=== PATIENT | male | born 1945 | race Caucasian/White ===

== ENCOUNTER 2022-03-10 10:18 | Outpatient (CLI) | payer MEDICARE, OTHER, SELFPAY ==
--- NOTE | 2022-03-10 08:30 | DI.RAD_ITS ---
Exam(s) XR KNEE LT 3V AP,LAT,SHIVAM EXAM: XR KNEE LT 3V AP,LAT,SHIVAM CLINICAL HISTORY: pain in knee. TECHNIQUE: 2D digital imaging was performed of the left knee. Three images were obtained. AP, late ral and PA tunnel views were obtained. COMPARISON: CR LEFT KNEE 3 VIEW COMPLETE from 07/16/2010 CR XR KNEE RT 3V AP,LAT,SHIVAM from 03/10/2022 FINDINGS: BONES: No acute fracture is present. No bony destructive lesion is seen. Dystrophic calcification is seen superior to the patella. JOINTS: The knee is normally aligned. No joint effusion is seen. Moderately severe degenerative barney es are seen in the knee with joint space narrowing and periarticular spurring. The findings are most marked in the medial femoral tibial joint. SOFT TISSUE: Atherosclerosis is present. IMPRESSION: Moderately severe degenerative changes of the knee. DATA REPOSITORY: RADIATION DOSE DELIVERED:
--- NOTE | 2022-03-10 08:30 | DI.RAD_ITS ---
Exam(s) XR KNEE RT 3V AP,LAT,SHIVAM EXAM: XR KNEE RT 3V AP,LAT,SHIVAM CLINICAL HISTORY: pain in knee. TECHNIQUE: 2D digital imaging was performed of the right knee. Three views obtained. AP, lateral an d PA tunnel views were obtained. COMPARISON: CR RIGHT KNEE 3 VIEWS from 07/16/2010 FINDINGS: BONES: No acute fracture is present. No bony destructive lesion is seen. Dystrophic calcifications ar e seen superior to the patella. JOINTS: The knee is normally aligned. There does appear to be a small joint effusion. Moderately sev ere tricompartment degenerative changes are present with joint space narrowing and periarticular spur ring. The findings are most marked in the patellofemoral joint. SOFT TISSUE: Atherosclerosis is present. IMPRESSION: Moderately severe degenerative changes of the knee. DATA REPOSITORY: RADIATION DOSE DELIVERED:
== END 2022-03-10 10:19 | disposition home or self-care (01) ==
LOC: DIORS 10:19
PROVIDERS: PCP Nurse Practitioner Family; Referring Provider Nurse Practitioner Family; Visit Provider Physician Assistant Surgical
DX: M17.11 Unilateral primary osteoarthritis, right knee (principal); M17.12 Unilateral primary osteoarthritis, left knee
CPT/HCPCS: 20610; 73562; 99203; J1040

== ENCOUNTER 2022-04-26 11:05 | Outpatient (CLI) | payer MEDICARE, OTHER, SELFPAY ==
--- NOTE | 2022-04-26 10:55 | DI.RAD_ITS ---
Exam(s) XR LUMBAR SPINE COMPLETE EXAM: XR LUMBAR SPINE COMPLETE CLINICAL HISTORY: drop foot. TECHNIQUE: 2D digital imaging was performed. COMPARISON: No exams were available for comparison FINDINGS: Six views No evidence of acute fracture nor listhesis. There is fusion across all of the disc spaces in the marilyn mbar spine with the exception of L1-2 and T12-L1. At L1-2 level there are bridging osteophytes. Sac roiliac joints appear unremarkable. IMPRESSION: Multilevel vertebral body fusion at and below L2-3 level. No listhesis. DATA REPOSITORY: RADIATION DOSE DELIVERED:
== END 2022-04-26 11:06 | disposition home or self-care (01) ==
LOC: DIORS 11:06
PROVIDERS: PCP Nurse Practitioner Family; Referring Provider Nurse Practitioner Family; Visit Provider Physician Assistant
DX: M21.371 Foot drop, right foot (principal); M48.061 Spinal stenosis, lumbar region without neurogenic claudication; M54.50 Low back pain, unspecified
CPT/HCPCS: 99215; 72110

== ENCOUNTER → 2022-05-17 02:46 | Outpatient (CLI) | payer MEDICARE, OTHER, SELFPAY ==
--- NOTE | 2022-05-17 07:30 | DI.MRI_ITS ---
Exam(s) MR LUMBAR SPINE WO EXAM: MR LUMBAR SPINE WO CLINICAL HISTORY: LBP, NEW DROP FOOT, S/P MULTIPLE SURGERIES, M54.50, M21.371. TECHNIQUE: Multiplanar multisequence MRI of the Lumbar spine was performed. COMPARISON: CR XR LUMBAR SPINE COMPLETE from 04/26/2022 FINDINGS: Bones: The last intervertebral disc space is designated the L5/S1 level for the numbering purpose of this examination. Partial fusion of L3-L4. Alignment is satisfactory. The signal characteristics ar e unremarkable. There are bridging osteophytes from L2 through S1. There is partial lumbarization of the S1 segment of the sacrum. There is an L2 laminectomy. There is a mild left convex curvature of the lumbar and thoracic spine. Cord: The conus tip ends at the L1 level. It is of normal size and signal intensity. T12-L1: No disc herniations or bulges are present. No central spinal canal or neural foraminal stenos is. L1-2: No disc herniations or bulges are present. No central spinal canal or neural foraminal stenosis . L2-3: No disc herniations or bulges are present. No significant central spinal canal stenosis. Mild bilateral neural foraminal stenosis. L3-4: Mildly prominent osteophyte seen. No significant central spinal canal stenosis. No right neur al foraminal stenosis. Mild left neural foraminal stenosis. L4-5: There is a prominent osteophyte posteriorly. There are hypertrophic changes of the facets and ligamentum flavum. These all contribute to cause mild narrowing of the central spinal canal. There is mild bilateral neural foraminal stenosis. L5-S1: No disc herniations or bulges are present. No significant central spinal canal or right neural foraminal stenosis. Mild left neural foraminal stenosis.Degenerative changes of the facets. Soft tissues: The visualized SI joints and sacrum are well maintained. Mild atrophy of paraspinal mus cles. Visualized abdominal organs: Unremarkable. IMPRESSION: Multilevel degenerative changes of the lumbar spine resulting in central spinal canal or neural jinny inal stenosis as described above. DATA REPOSITORY:
== END ==
PROVIDERS: PCP Nurse Practitioner Family; Visit Provider Student in an Organized Health Care Education/Training Program
DX: M21.371 Foot drop, right foot (principal); M47.816 Spondylosis without myelopathy or radiculopathy, lumbar region; M48.061 Spinal stenosis, lumbar region without neurogenic claudication
CPT/HCPCS: 72148

== ENCOUNTER → 2024-07-01 14:22 | Outpatient (BNVA) | payer MEDICARE, SELFPAY | PROVIDERS: PCP Specialist/Technologist Athletic Trainer; Referring Provider Specialist/Technologist Athletic Trainer; Visit Provider Urology | DX: R33.8 Other retention of urine (principal) | CPT/HCPCS: 99215 ==

== ENCOUNTER → 2024-07-25 09:48 | Outpatient (BNVA) | payer MEDICARE, SELFPAY | PROVIDERS: PCP Specialist/Technologist Athletic Trainer; Referring Provider Specialist/Technologist Athletic Trainer; Visit Provider Nurse Practitioner Gerontology | DX: R33.8 Other retention of urine (principal) | CPT/HCPCS: 99213 ==

== ENCOUNTER → 2024-07-29 12:21 | Outpatient (BNVA) | payer MEDICARE, SELFPAY | PROVIDERS: PCP Specialist/Technologist Athletic Trainer; Visit Provider Urology | DX: Z46.6 Encounter for fitting and adjustment of urinary device (principal); R33.8 Other retention of urine | CPT/HCPCS: 51702; 99214 ==

== ENCOUNTER → 2024-08-29 10:36 | Outpatient (BNVA) | payer MEDICARE, SELFPAY | PROVIDERS: PCP Specialist/Technologist Athletic Trainer; Referring Provider Specialist/Technologist Athletic Trainer; Visit Provider Urology | DX: R33.8 Other retention of urine (principal) | CPT/HCPCS: 51728; 51784; 51797 ==

== ENCOUNTER → 2024-09-02 12:36 | Outpatient (BNVA) | payer MEDICARE, SELFPAY | PROVIDERS: PCP Specialist/Technologist Athletic Trainer; Referring Provider Specialist/Technologist Athletic Trainer; Visit Provider Urology | DX: R33.8 Other retention of urine (principal) | CPT/HCPCS: 99213 ==

== ENCOUNTER → 2024-10-03 10:41 | Outpatient (BNVA) | payer MEDICARE, SELFPAY | PROVIDERS: PCP Specialist/Technologist Athletic Trainer; Referring Provider Specialist/Technologist Athletic Trainer; Visit Provider Urology | DX: Z46.6 Encounter for fitting and adjustment of urinary device (principal); R33.8 Other retention of urine | CPT/HCPCS: 51702 ==

== ENCOUNTER 2024-11-04 08:56 | Observation (INO) | payer MEDICARE, SELFPAY ==
[2024-11-04] VITALS (28 sets, daily range): BP systolic 100–142; BP diastolic 28–69; PULSE 64–83; RESP 13–21; TEMP 36.2–37.2; O2SAT 85–98; BMI 34.7
[2024-11-04] MEDS: Lactated Ringers 1,000 ML 80 ML IV (06:50)
--- NOTE | 2024-11-04 06:56 | W.PM.HP.N ---
Date of service: 11/04/24 Time of Service: 06:57 Assessment and Plan Assessment and plan (1) Urinary retention: Assessment and plan: We will proceed with cystoscopy and TURP using bipolar cautery. We will use broad spectrum antibiotics preoperatively. We discussed possible complications including bleeding, infection and scar tissue/bladder neck contractures History of Present Illness History of Present Illness Chief Complaint: Urinary retention Narrative: This is an 79-year-old gentleman who has a history of progressive lower urinary tract symptoms. He ultimately developed urinary retention and failed maximal medical therapy. He has had an indwelling catheter that is being changed monthly. We were concerned because he had no real sensation of needing to void during his voiding trials. We did a urodynamic study in the office. He was able to sense bladder filling at approximately 500 cc of fluid infused and he was able to generate a bladder pressure of up to 50 cm of water. It was felt that he had a good chance of being able to void if we relieved any bladder outlet obstruction. He presents now for transurethral resection of the prostate. Review of Systems Narrative: No fevers or chills No vision change or dysphasia No diabetes or thyroid dysfunction Short of breath with exertion. No hemoptysis No chest pain or palpitations GERD. No hepatitis, ulcers, jaundice OCD. No seizures, strokes or peripheral neuropathy No bleeding disorders or anemia Spinal stenosis. Bilateral knee pain. Foot drop. No gout PFSH All Active Problems Right foot drop (Acute 04/24/22) Spinal stenosis, lumbar (Acute) Osteoarthritis of right knee (Acute) depo injection 03/10/22 Osteoarthritis of left knee (Acute) depo injection 03/10/22 Varicose veins of lower extremity (Acute) Medical History UTI (urinary tract infection) Hematuria BPH loc w urin obs/LUTS Urinary retention Hyperplasia of prostate Cervical radiculopathy GERD (gastroesophageal reflux disease) Benign essential hypertension Depressive disorder Psychophysiologic insomnia OCD (obsessive compulsive disorder) Hyperlipidemia Polyp of colon Social History Smoking/Tobacco Use Status: Never Smoking risk assessment performed?: Yes Alcohol Intake: current Alcohol Intake frequency: holidays/special occasions only Alcohol type: hard liquor Drug use: Never Substance use type: does not use Housing: house Current gender identity: male Do you feel safe at home: Yes Do you feel safe in your relationship?: Yes Meds Allergies and Home Medications Allergies Allergy/AdvReac Type Severity Reaction Status Date / Time Penicillins Allergy Hives Verified 11/04/24 06:41 Home Medications ?Medication ?Instructions ?Recorded ?Confirmed ?Type acetaminophen 325 mg tablet 1 - 2 tab PO Q6H PRN PRN 04/09/15 10/30/24 History (Tylenol) lamotrigine 100 mg tablet 100 mg PO DAILY 04/09/15 10/30/24 History (Lamictal) lorazepam 0.5 mg tablet 0.5 tab PO PRN PRN 04/09/15 10/30/24 History lorazepam 2 mg tablet 2 tab PO HS 04/13/15 11/04/24 History trazodone 150 mg tablet 150 mg PO HS 04/13/15 11/04/24 History cholecalciferol (vitamin D3) 25 1,000 units PO DAILY 04/15/15 11/04/24 History mcg (1,000 unit) tablet multivitamin 1 cap PO DAILY 04/15/15 11/04/24 History albuterol sulfate 90 mcg/actuation 2 puff inhalation QID 03/09/22 11/04/24 History aerosol inhaler bupropion HCl 150 mg tablet,12 hr 150 mg PO BID 03/09/22 11/04/24 History sustained-release metoprolol succinate 25 mg 25 mg PO DAILY 03/09/22 11/04/24 History tablet,extended release 24 hr izycnkgub-ios-arhvkf complex 1 tab PO DAILY 03/09/22 10/30/24 History #575-vlao-ebbpgvqapg 100 mg tablet (Urinozinc Prostate Formula Plus) tamsulosin 0.4 mg capsule 0.4 mg PO HS 03/09/22 11/04/24 History fluticasone propionate 50 2 spray intranasal BID 06/19/24 10/30/24 History mcg/actuation nasal spray,suspension (Allergy Relief (fluticasone)) nystatin 100,000 unit/gram topical 1 applic topical TID #15 grams 07/02/24 11/04/24 Rx cream mirabegron 50 mg tablet,extended 50 mg PO DAILY #30 tabs 10/03/24 11/04/24 Rx release 24 hr (Myrbetriq) mqnivfcc-qzabhstiv-gfwggrymw 3.5 4 drp otic (ear) TID 10/30/24 11/04/24 History mg/mL-10,000 unit/mL-1 % ear solution Exam Resp Effort & Inspection: normal respiratory effort Auscultation: clear to auscultation bilaterally Cardio Rate: regular rate Rhythm: regular rhythm GI Palpation: soft and no masses Other: sherwood in place Neuro General: patient alert, patient awake and patient oriented x3 Results Last Vital Signs Temp 36.7 C 11/04/24 06:27 Pulse 76 11/04/24 06:27 Resp 17 11/04/24 06:27 BP 118/60 11/04/24 06:27 Pulse Ox 94 11/04/24 06:27 Time Spent Time spent with Patient: <40 minutes Time was spent: other
--- NOTE | 2024-11-04 07:14 | W.ANESPRE ---
General Info Date of Service Date Performed: 11/04/24 Height: 6 ft 4 in Weight: 129.274 kg Body Mass Index (BMI): 34.7 Surgical Procedure: Operation Date: 11/04/24 07:40 Proposed Procedure Side Surgeon p Cystoscopy w/Transurethral Resection Prostate Dev MD Morteza Meds Allergies and Home Medications Allergies Allergy/AdvReac Type Severity Reaction Status Date / Time Penicillins Allergy Hives Verified 11/04/24 06:41 Home Medication ?Medication ?Instructions ?Recorded acetaminophen 325 mg tablet 1 - 2 tab PO Q6H PRN PRN 04/09/15 (Tylenol) lamotrigine 100 mg tablet 100 mg PO DAILY 04/09/15 (Lamictal) lorazepam 0.5 mg tablet 0.5 tab PO PRN PRN 04/09/15 lorazepam 2 mg tablet 2 tab PO HS 04/13/15 trazodone 150 mg tablet 150 mg PO HS 04/13/15 cholecalciferol (vitamin D3) 25 1,000 units PO DAILY 04/15/15 mcg (1,000 unit) tablet multivitamin 1 cap PO DAILY 04/15/15 albuterol sulfate 90 mcg/actuation 2 puff inhalation QID 03/09/22 aerosol inhaler bupropion HCl 150 mg tablet,12 hr 150 mg PO BID 03/09/22 sustained-release metoprolol succinate 25 mg 25 mg PO DAILY 03/09/22 tablet,extended release 24 hr oaxzyfmay-eqa-pmxpmv complex 1 tab PO DAILY 03/09/22 #[id number]-dniefasnwn 100 mg tablet (Urinozinc Prostate Formula Plus) tamsulosin 0.4 mg capsule 0.4 mg PO HS 03/09/22 fluticasone propionate 50 2 spray intranasal BID 06/19/24 mcg/actuation nasal spray,suspension (Allergy Relief (fluticasone)) nystatin 100,000 unit/gram topical 1 applic topical TID #15 grams 07/02/24 cream mirabegron 50 mg tablet,extended 50 mg PO DAILY #30 tabs 10/03/24 release 24 hr (Myrbetriq) aespcayn-dvymtqybu-ishtmsdil 3.5 4 drp otic (ear) TID 10/30/24 mg/mL-10,000 unit/mL-1 % ear solution Current Visit Medications: Current Medications Generic Name Dose Route Start Last Admin Trade Name Freq PRN Reason Stop Dose Admin Cefazolin Sodium/Dextrose 2 gm in 50 mls @ 100 mls/hr 11/04/24 06:00 Ancef Duplex IVPB 11/04/24 23:59 PREOP KYREE Ringer's Solution 1,000 mls @ 80 mls/hr 11/04/24 06:00 11/04/24 06:50 IV 80 mls/hr INFUSION KYREE Administration Gentamicin Sulfate 120 mg/ 103 mls @ 200 mls/hr 11/04/24 07:06 Sodium Chloride IVPB 11/04/24 07:36 NOW ONE IV Miscellaneous Supplies 1 each 11/04/24 06:00 Iv Access IV 11/04/24 23:59 DIRECTED KYREE Sodium Chloride 0 ml 11/04/24 06:00 Normal Saline Flush 10 Ml Syr IV 11/04/24 23:59 PRN PRN Sodium Chloride 0 ml 11/04/24 06:00 Normal Saline 10 Ml Vial IJ 11/04/24 23:59 DIRECTED PRN Sterile Water 0 ml 11/04/24 06:00 Water,Injection,Sterile 10 Ml Vial IJ 11/04/24 23:59 DIRECTED PRN PFSH Active Problems Active Problems: Problem Status Onset Code Right foot drop Acute 04/24/22 M21.371 Spinal stenosis, lumbar Acute M48.061 Osteoarthritis of right knee Acute M17.11 Osteoarthritis of left knee Acute M17.12 Varicose veins of lower extremity Acute I83.90 Medical History Medical History UTI (urinary tract infection) Hematuria BPH loc w urin obs/LUTS Urinary retention Hyperplasia of prostate Cervical radiculopathy GERD (gastroesophageal reflux disease) Benign essential hypertension Depressive disorder Psychophysiologic insomnia OCD (obsessive compulsive disorder) Hyperlipidemia Polyp of colon Medical History Comments:: Kauffman catheter in situ Tobacco Smoking/Tobacco Use Status: Never Alcohol Alcohol Intake: current Alcohol intake frequency: holidays/special occasions only Alcohol type: hard liquor Substance Use Substance use: Never Substance use type: does not use Vital Signs and Lab Results Vital Signs Most Recent Vital Signs in EMR: Most Recent Vital Signs Temp Pulse Resp BP Pulse Ox 36.7 C 76 17 118/60 94 11/04/24 06:27 11/04/24 06:27 11/04/24 06:27 11/04/24 06:27 11/04/24 06:27 Lab Results Blood Type / Crossmatch: No Data to Display Complete Blood Count: No Data to Display Complete Metabolic Panel: No Data to Display Liver Function Panel: No Data to Display Coagulation Panel: No Data to Display Cardiac Panel: No Data to Display Arterial Blood Gas: No Data to Display Venous Blood Gas: No Data to Display Pancreas Panel: No Data to Display Thyroid Panel: No Data to Display Infectious Disease: No Data to Display Blood Cultures: No Data to Display Toxicology Panel: No Data to Display Anesthesia Assessment and Plan Anesthesia History Personal History: No History of Anesthesia Complications Family History: No Family History of Anesthesia Complications Exercise Tolerance Exercise Tolerance: Metabolic Equivalents>4 Pertinent Negatives Pertinent Negatives: No Symptoms of GERD Cardiac & Pulmonary Exam Cardiac Exam: Normal S1/S2 Heart Sounds Pulmonary Exam: Clear Bilateral Breath Sounds Implantable Cardiac Device Does patient have a Pacemaker or an ICD?: No Airway Exam Known Difficult Airway: No Mallampati Class: 1 Mouth Opening: Normal (> 3cm) Thyromental Distance: Greater than 3 cm Neck Range of Motion: Full ROM Neck Circumference: Normal Teeth Condition: Removable Dentures/Plates Upper and Removable Dentures/Plates Lower ASA Classification ASA Score: ASA 2 Emergency Case?: No NPO Status NPO Status: NPO Clears >2 hours, Solids >8 hours Anesthesia Plan Resuscitation Status: Full Code Anesthesia Technique: General Anesthesia Airway Planned: Endotracheal Tube Monitors Used: Standard Monitors
[2024-11-04] MEDS: ceFAZolin 2 GM/50 ML BAG IVPB (07:58)
--- NOTE | 2024-11-04 08:07 | W.ANESPRE ---
General Info Date of Service Date Performed: 11/04/24 Height: 6 ft 4 in Weight: 129.274 kg Body Mass Index (BMI): 34.7 Surgical Procedure: Operation Date: 11/04/24 07:40 Proposed Procedure Side Surgeon p Cystoscopy w/Transurethral Resection Prostate Dev MD Morteza Meds Allergies and Home Medications Allergies Allergy/AdvReac Type Severity Reaction Status Date / Time Penicillins Allergy Hives Verified 11/04/24 06:41 Home Medication ?Medication ?Instructions ?Recorded acetaminophen 325 mg tablet 1 - 2 tab PO Q6H PRN PRN 04/09/15 (Tylenol) lamotrigine 100 mg tablet 100 mg PO DAILY 04/09/15 (Lamictal) lorazepam 0.5 mg tablet 0.5 tab PO PRN PRN 04/09/15 lorazepam 2 mg tablet 2 tab PO HS 04/13/15 trazodone 150 mg tablet 150 mg PO HS 04/13/15 cholecalciferol (vitamin D3) 25 1,000 units PO DAILY 04/15/15 mcg (1,000 unit) tablet multivitamin 1 cap PO DAILY 04/15/15 albuterol sulfate 90 mcg/actuation 2 puff inhalation QID 03/09/22 aerosol inhaler bupropion HCl 150 mg tablet,12 hr 150 mg PO BID 03/09/22 sustained-release metoprolol succinate 25 mg 25 mg PO DAILY 03/09/22 tablet,extended release 24 hr zjjezuvxc-elk-jdcrgi complex 1 tab PO DAILY 03/09/22 #[id number]-osmkdfhxxn 100 mg tablet (Urinozinc Prostate Formula Plus) tamsulosin 0.4 mg capsule 0.4 mg PO HS 03/09/22 fluticasone propionate 50 2 spray intranasal BID 06/19/24 mcg/actuation nasal spray,suspension (Allergy Relief (fluticasone)) nystatin 100,000 unit/gram topical 1 applic topical TID #15 grams 07/02/24 cream mirabegron 50 mg tablet,extended 50 mg PO DAILY #30 tabs 10/03/24 release 24 hr (Myrbetriq) jpoezlqs-zdmcvtvjf-jvwgwgmvx 3.5 4 drp otic (ear) TID 10/30/24 mg/mL-10,000 unit/mL-1 % ear solution Current Visit Medications: Current Medications Generic Name Dose Route Start Last Admin Trade Name Freq PRN Reason Stop Dose Admin Cefazolin Sodium/Dextrose 2 gm in 50 mls @ 100 mls/hr 11/04/24 06:00 Ancef Duplex IVPB 11/04/24 23:59 PREOP KYREE Ringer's Solution 1,000 mls @ 80 mls/hr 11/04/24 06:00 11/04/24 06:50 IV 80 mls/hr INFUSION KYREE Administration IV Miscellaneous Supplies 1 each 11/04/24 06:00 Iv Access IV 11/04/24 23:59 DIRECTED KYREE Sodium Chloride 0 ml 11/04/24 06:00 Normal Saline Flush 10 Ml Syr IV 11/04/24 23:59 PRN PRN Sodium Chloride 0 ml 11/04/24 06:00 Normal Saline 10 Ml Vial IJ 11/04/24 23:59 DIRECTED PRN Sterile Water 0 ml 11/04/24 06:00 Water,Injection,Sterile 10 Ml Vial IJ 11/04/24 23:59 DIRECTED PRN PFSH Active Problems Active Problems: Problem Status Onset Code Right foot drop Acute 04/24/22 M21.371 Spinal stenosis, lumbar Acute M48.061 Osteoarthritis of right knee Acute M17.11 Osteoarthritis of left knee Acute M17.12 Varicose veins of lower extremity Acute I83.90 Medical History Medical History UTI (urinary tract infection) Hematuria BPH loc w urin obs/LUTS Urinary retention Hyperplasia of prostate Cervical radiculopathy GERD (gastroesophageal reflux disease) Benign essential hypertension Depressive disorder Psychophysiologic insomnia OCD (obsessive compulsive disorder) Hyperlipidemia Polyp of colon Medical History Comments:: Kauffman catheter in situ Tobacco Smoking/Tobacco Use Status: Never Alcohol Alcohol Intake: current Alcohol intake frequency: holidays/special occasions only Alcohol type: hard liquor Substance Use Substance use: Never Substance use type: does not use Vital Signs and Lab Results Vital Signs Most Recent Vital Signs in EMR: Most Recent Vital Signs Temp Pulse Resp BP Pulse Ox 36.7 C 76 17 118/60 94 11/04/24 06:27 11/04/24 06:27 11/04/24 06:27 11/04/24 06:27 11/04/24 06:27 Lab Results Blood Type / Crossmatch: No Data to Display Complete Blood Count: No Data to Display Complete Metabolic Panel: No Data to Display Liver Function Panel: No Data to Display Coagulation Panel: No Data to Display Cardiac Panel: No Data to Display Arterial Blood Gas: No Data to Display Venous Blood Gas: No Data to Display Pancreas Panel: No Data to Display Thyroid Panel: No Data to Display Infectious Disease: No Data to Display Blood Cultures: No Data to Display Toxicology Panel: No Data to Display Anesthesia Assessment and Plan Anesthesia History Personal History: No History of Anesthesia Complications Family History: No Family History of Anesthesia Complications Exercise Tolerance Exercise Tolerance: Metabolic Equivalents>4 Pertinent Negatives Pertinent Negatives: No Symptoms of GERD Implantable Cardiac Device Does patient have a Pacemaker or an ICD?: No Airway Exam Known Difficult Airway: No Mallampati Class: 1 Mouth Opening: Normal (> 3cm) Thyromental Distance: Greater than 3 cm Neck Range of Motion: Full ROM Neck Circumference: Normal Teeth Condition: Removable Dentures/Plates Upper and Removable Dentures/Plates Lower
[2024-11-04] MEDS: GENTAMICIN 120 MG in Normal Saline 100 ML 200 MG IVPB (08:10)
[2024-11-04] MEDS: Lidocaine 2% Jelly 11 ML SYR (08:16)
--- NOTE | 2024-11-04 08:49 | PROST_PTH ---
PATIENT: Benjamin Hancock LOC: U#:[id number] AGE/SX: 79/M ROOM: 230 RE11/04/[address]: Dev Pro MD : [id number] BED: A DIS: 11/05/2024 SPEC #: [id number] RECD: 11/04/24 12:58 STATUS: KISHORE REQ #: [id number] JUAN MANUEL: 11/04/24 08:[address]: Dev Pro DEPT: Surgical Specimen RECD BY: Lakeisha Zee Tissues: 1 - PROSTATE CURRETTINGS Procedures: GROSS AND MICRO LEVEL 4 Comments: [id number]
--- NOTE | 2024-11-04 09:05 | W.BRIEF ---
Date of service: 11/04/24 Time of Service: 09:05 Brief Operative Note Procedure/Pre & Post Op Diagnoses/Purchasing Expeditor: Operation Date: 11/04/24 07:40 Actual Procedures p Cystoscopy w/Transurethral Resection Prostate(Not Applicable) - Dev Pro MD Pre-Op Diagnosis: Urinary retention Post-Op Diagnosis: Urinary retention Anesthesia Anesthesia Type: Local By Surgeon and General LMA/ETT Estimated Blood Loss Output, Estimated Blood Loss 250 Amount Specimen/Culture Specimen(s): Prostate Chips Complications Complications: None Additional Procedure Notes Note: 24 Portuguese Coude tipped irrigating sherwood catheter with 30 cc sterile water in balloon
--- NOTE | 2024-11-04 09:06 | W.PM.OP ---
Operative Note Operative Note PRE-OP DIAGNOSIS: Urinary retention POST-OP DIAGNOSIS: same PROCEDURE: cystoscopy with transurethral resection of prostate SURGEON: Dev Pro ANESTHESIA TYPE: Local By Surgeon and General LMA/ETT Refer to Anesthesia Record ESTIMATED BLOOD LOSS: 250 PATHOLOGY: other (prostate chips) COMPLICATIONS: None Patient was transported to: PACU Patient's condition: stable Implants: 24 [place] coude tipped irrigating catheter with 30 cc sterile water in balloon Indications: This is an 79-year-old gentleman who has a history of progressive lower urinary tract symptoms. He ultimately developed urinary retention and failed multiple voiding trials with maximal medical therapy. We were concerned as he was not reporting a sensation of bladder fullness, so we did urodynamics which confirmed some contractility of the bladder muscle. He presents now for transurethral resection of the prostate. Findings: Lateral lobe enlargement of the prostate with heavily trabeculated bladder Procedure Description: The patient was given broad-spectrum IV antibiotics. He was brought to the operating room on 11/04/2024. After successful induction of general anesthesia, he was placed in the dorsal lithotomy position. His indwelling catheter balloon was deflated and his catheter was removed. His genitalia was then prepped and draped. 2% Xylocaine jelly was instilled into the urethra. A 24 [place] resectoscope sheath was passed through the urethra into the bladder. We used a visual obturator to inspect both the urethra and the bladder. The pendulous, bulbar and membranous urethra appeared normal with no strictures. The prostatic urethra showed lateral lobe enlargement but no significant median lobe. The bladder neck was entered and the bladder mucosa was inspected. The bladder mucosa was slightly hyperemic as would be expected with the presence of an indwelling catheter. The bladder was rather heavily trabeculated but there were no stones identified. No papillary or nodular lesions were seen on the mucosa. We then switched to a Golgi resectoscope and utilized bipolar cautery to perform transurethral resection of the prostate. We resected tissue from the bladder neck out to the [facility]. The depth of the resection was down to the prostatic capsule. All resected tissue was evacuated and sent to pathology for permanent section. At the completion of the resection, we switched to the plasma ball and vaporized and cauterized the remaining prostate tissue down to the capsule. At the completion of the procedure, the cystoscope was withdrawn. A 24 Rw[place]an hematuria catheter was passed through the urethra into the bladder. The catheter balloon was inflated with 30 cc of sterile water. Continuous bladder irrigation was maintained and hand irrigation of the catheter confirmed the absence of residual tissue. Traction was placed on the catheter until the irrigant became clear. The catheter was then hooked to gravity drainage. The patient tolerated this procedure well with no complications. Date of Procedure: 11/04/24
[2024-11-04] MEDS: Ketorolac 15 MG/ML VIAL IVP (09:43)
--- NOTE | 2024-11-04 10:26 | W.PC.ACHO ---
Registration Status: Primary Language: Preferred Language: Medical / Surgical History (Last Reviewed 11/04/24 @ 06:35 by Tiffany Garcia RN) UTI (urinary tract infection) Hematuria BPH loc w urin obs/LUTS Urinary retention Hyperplasia of prostate Cervical radiculopathy GERD (gastroesophageal reflux disease) Benign essential hypertension Depressive disorder Psychophysiologic insomnia OCD (obsessive compulsive disorder) Hyperlipidemia Polyp of colon Most Recent Vital Signs Temperature 36.7 C 11/04/24 10:05 Pulse 66 11/04/24 09:45 Pulse Rhythm Regular 11/04/24 06:27 Pulse 65 11/04/24 09:45 Respiratory Rate 16 11/04/24 09:45 Respiratory Depth Normal 11/04/24 06:27 Blood Pressure 121/49 L 11/04/24 09:45 Blood Pressure Mean 73 11/04/24 09:45 Pulse Oximetry 97 11/04/24 09:45 Respiratory End-tidal CO2 36 11/04/24 09:45 Oxygen Delivery Method Room Air 11/04/24 10:05 Oxygen Flow Rate 0 11/04/24 10:05 Pain Level 7 11/04/24 10:05 Allergies Penicillins Allergy (Verified 11/04/24 06:41) Hives Active Medications Generic Name Dose Route Start Last Admin Trade Name Freq PRN Reason Stop Dose Admin Cefazolin Sodium/Dextrose 2 gm in 50 mls @ 100 mls/hr 11/04/24 06:00 11/04/24 08:18 Ancef Duplex IVPB 11/04/24 23:59 Infused PREOP KYREE Infusion Ringer's Solution 1,000 mls @ 80 mls/hr 11/04/24 06:00 11/04/24 10:24 IV 80 mls/hr INFUSION KYREE Infusion Ketorolac Tromethamine 15 mg 11/04/24 09:00 11/04/24 09:43 Ketorolac 15 Mg/Ml Vial IVP 11/09/24 08:59 15 mg Q6H PRN PRN Administration IV IV Catheter Type [Left Wrist] Peripheral IV IV Catheter Gauge [Left Wrist] 20 Diet Orders Category Date Time Status DIET [Regular/Normal] [DIET] Nutrition 11/04/24 Lunch Active Intake and Output - 24 Hour Total 08/29/24 13:10 thru 11/04/24 10:24 Intake Total 1003 Output Total 250 Balance 753 Weight 129.274 kg Intake: IV 1003 Output: Estimated Blood Loss 250 Other: Urine Color [place] Urine Appearance Clear Emesis Description None Urinary Catheter Urinary Catheter Date of 11/04/24 Insertion [3-way Urethral] Time of insertion [3-way 08:40 Urethral] v v v v v v v v v Sending and/or Receiving Nurses: Please use comment section below to note any information pertinent to the patient hand-off not included above. Information / Comments: Report received from: [employer]. Pt sats into upper 90s after coughing.
--- NOTE | 2024-11-04 12:02 | W.ANESPOSTOP ---
Postoperative Evaluation Date, Time and Location Date Performed: 11/04/24 Time Performed: 12:02 Patient Location: Med/Surg Vital Signs Most Recent Imported Vital Signs: Most Recent Vital Signs Temp Pulse Resp BP Pulse Ox 36.3 C L 64 18 113/59 L 91 L 11/04/24 10:45 11/04/24 10:45 11/04/24 10:45 11/04/24 10:45 11/04/24 10:45 Pain Score Most Recent Pain Score: Most Recent Pain Score Pain Level 7 11/04/24 10:05 Assessment Mental Status: Awake (Alert & Oriented to Patient Baseline) Airway and Respiratory Function: Patent airway with normal (patient baseline) respiratory exam Cardiovascular Function: Hemodynamically Stable Hydration Status: Adequately Hydrated Nausea & Vomiting: No Nausea or Vomiting Pain: Pain is tolerable per patient Peripheral Nerve Block: Patient did not receive a nerve block
--- NOTE | 2024-11-04 13:12 | PHA.REVIEW2 ---
Pharmacy Admission Review Admission Clinical Review Admission Pharmacy Review: Penicillins Allergy (Verified 11/04/24 06:41) Hives Resuscitation Status Full Code Height 6 ft 4 in Weight 129.27 kg Comments Comments/Follow Ups: POD#0 cystoscopy with transurethral resection of prostate Pharmacy Admission Review Renal Dosing Medications needing adjustments: Reviewed (No SCr level) Anticoagulation DVT Prophylaxis: Reviewed (SCDs - POD#0) Relevant Labs Electrolytes, C-Reactive P, ESR: Reviewed (No labs) Cardiac Review BP, HR, EF%: Reviewed (BP and HR WNL) List meds needing interventions: Has order for metoprolol XL 25mg daily QTc Review QTc: Reviewed (No EKG on file) IV to PO Switch IV Medications: Reviewed (cefazolin and ketorolac) Home Meds Home Med List reviewed: Reviewed Relevent Home Meds Not ordered & why?: Flonase, Myrbetriq and nystatin Current Meds Current Medication Order Review: Intervened Comments: Discontinued PACU orders On cefazolin postop x 3 doses Comments Comments/Follow Ups: POD#0 cystoscopy with transurethral resection of prostate
[2024-11-04] MEDS: ceFAZolin 1 GM/50 ML BAG IVPB ×2 (14:24→22:27)
[2024-11-04] MEDS: Tamsulosin 0.4 MG CAPCR PO (20:50)
[2024-11-04] MEDS: LORazepam 1 MG TAB 4 MG PO (22:26)
[2024-11-04] MEDS: Normal Saline Flush 10 ML SYR IV (22:28)
[2024-11-04] MEDS: traZODone 100 MG TAB 150 MG PO (23:57)
[2024-11-05 06:17] LABS: Abs Immature Grans 0.02 10^3/uL (0.0-0.06); Absolute Basophil Count 0.01 10^3/uL (0.0-0.2); Absolute Lymphocyte Count 0.74 10^3/uL (1.2-3.4); Absolute Monocyte Count 0.71 10^3/uL (0.1-0.8); Absolute Neutrophil Count 8.38 10^3/uL (1.2-6.7); Basophils % 0.1 %; HCT 39.4 % (40.0-50.0); HGB 13.1 g/dL (13.5-17.5); Immature Grans % 0.2 %; Lymphocytes % 7.5 %; MCH 31.6 pg (27.0-33.0); MCHC 33.2 % (32.0-36.0); MCV 95 fL (80-95); MPV 9.6 fL (8.0-11.0); Monocytes % 7.2 %; Platelet Count 173 10^3/uL (130-400); RBC 4.15 10^6/uL (4.36-5.78); RDW 12.3 % (11.8-14.1); RDW-SD 43.1 fL; WBC 9.86 10^3/uL (4.4-10.8)
[2024-11-05] MEDS: Normal Saline Flush 10 ML SYR IV (06:26)
[2024-11-05] MEDS: ceFAZolin 1 GM/50 ML BAG IVPB (06:27)
[2024-11-05 06:33] LABS: Anion Gap 5.6 mmol/L (3-11); BUN 20 mg/dL (7-18); CO2 29.4 mmol/L (21.0-32.0); CREATININE 1.3 mg/dL (0.70-1.30); Calcium 8.7 mg/dL (8.5-10.1); Chloride 108 mmol/L (98-107); Estimated GFR 55.53 (mL/min/1.73m2); Glucose 118 mg/dL (74-106); Potassium 4.5 mmol/L (3.5-5.1); Sodium 143 mmol/L (136-145)
[2024-11-05 06:37] VITALS: BP 129/72; PULSE 61; RESP 16; TEMP 36.4; O2SAT 94
--- NOTE | 2024-11-05 07:41 | W.PM.PROGNOT ---
Date of Service Date of service: 11/05/24 Time of Service: 07:41 Assessment and Plan Assessment and plan (1) Urinary retention: Assessment and plan: We will stop his bladder irrigation and recheck him in a few hours. If his urine remains transparent, I see no reason that we will not be able to discharge him later today with his catheter in place. He would then come back for voiding trial either at a later this week or early next week. Subjective Subjective Interval history since last seen: The patient was concerned about not being able to sleep but apparently he slept quite well overnight. I did not wake him this morning. He had no episodes of clot retention overnight Exam Narrative Exam Narrative: His vital signs are documented elsewhere in the chart His bladder irrigation is completely clear at a slow rate of infusion His morning labs are stable Objective Last Vital Signs Temp 36.4 C L 11/05/24 06:37 Pulse 61 11/05/24 06:37 Resp 16 11/05/24 06:37 BP 129/72 11/05/24 06:37 Pulse Ox 94 11/05/24 06:37 Laboratory Results - last 24 hr 11/05/24 05:21 WBC 9.86 RBC 4.15 L Hgb 13.1 L Hct 39.4 L MCV 95 MCH 31.6 MCHC 33.2 RDW 12.3 Plt Count 173 MPV 9.6 Immature Gran % 0.2 Neutrophils % 85.0 Lymphocytes % 7.5 Monocytes % 7.2 Eosinophils % 0.0 Basophils % 0.1 Nucleated RBC % 0.0 Absolute Neutrophils 8.38 H Absolute Lymphocytes 0.74 L Absolute Monocytes 0.71 Absolute Eosinophils 0.00 Absolute Basophils 0.01 Sodium 143 Potassium 4.5 Chloride 108 H Carbon Dioxide 29.4 Anion Gap 5.6 BUN 20 H Creatinine 1.3 Est GFR (CKD-EPI 2020) 55.53 Glucose 118 H Calcium 8.7 PAWSS Have you Been Recently Intoxicated or Drunk Within the Last 30 days?: No Have you Ever Experienced Previous Episodes of Alcohol Withdrawal?: No Have you ever Experienced Withdrawal Seizures?: No Have you ever Experienced Delirium Tremens(DT)s?: No Have you ever undergone Alcohol Rehabilitation Treatment (i.e, inpt ot outpatient treatment programs)?: No Have you ever Experienced Blackouts?: No Have you ever Combined Alcohol with other Downers within the last 90 days?: No Have you ever Combined Alcohol with any other Substance of Abuse during the last 90 days?: No Positive Blood Alcohol level on Presentation? [PCS.BAL]: No Evidence of Increased Autonomic Activity (i.e. HR>120, tremor, sweating, agitation, nausea)?: No Result: 0 Time Spent with Patient Time Spent with Patient: <25 minutes Time was spent: preparing to see the patient(eg.review tests) and referring, communicating with other health childcare director
[2024-11-05 08:04] VITALS: BP 116/69; PULSE 65; RESP 14; TEMP 37.1; O2SAT 93
[2024-11-05] MEDS: buPROPion-CR 150 MG TABCR PO (08:25)
[2024-11-05] MEDS: Cholecalciferol (Vitamin D3) 1,000 UNIT TAB 1000 UNITS PO (08:26)
[2024-11-05] MEDS: Metoprolol CR 25 MG TABCR PO (08:26)
[2024-11-05] MEDS: Multivitamin TAB 1 TAB PO (08:26)
[2024-11-05] MEDS: Docusate Sodium 100 MG CAP PO (08:26)
--- NOTE | 2024-11-05 09:24 | W.PM.DS.N ---
Date of service: 11/05/24 Time of Service: 09:24 DS: Diagnosis Discharge Diagnosis (1) Urinary retention: Discharge Plan Disposition Patient Disposition: Home Condition: Improving Discharge Details Reason For Visit: Urinary Retention Admit Date/Time: 11/04/24 08:56 Admit Provider: Dev Pro Attending Provider: Dev Pro [facility] Course: The patient was admitted and taken to the operating room on 11/04/2024. He was given preprocedural IV antibiotics. He underwent transurethral resection of the prostate under general anesthesia. Following the procedure, continuous bladder irrigation was maintained. By postoperative day #1, the irrigant was clear. His postoperative day #1 Labs were appropriate. His vital signs were stable and his bladder irrigation was discontinued. Later in the morning, his urine was pink-tinged but transparent. He was felt to be ready for discharge on postoperative day #1. Home Meds and New Rx's Prescriptions: New sulfamethoxazole-trimethoprim [Bactrim DS] 800-160 mg tablet 1 tab PO BID Qty: 10 0RF No Action bupropion HCl 150 mg tablet sustained-release 12 hr 150 mg PO BID albuterol sulfate 90 mcg/actuation HFA aerosol inhaler 2 puff inhalation QID metoprolol succinate 25 mg tablet extended release 24 hr 25 mg PO DAILY tamsulosin 0.4 mg capsule 0.4 mg PO HS Urinozinc Prostate Formula Pls 100 mg tablet 1 tab PO DAILY nystatin 100,000 unit/gram cream 1 applic topical TID Qty: 15 3RF mirabegron [Myrbetriq] 50 mg tablet extended release 24 hr 50 mg PO DAILY Qty: 30 1RF fluticasone propionate [Allergy Relief (fluticasone)] 50 mcg/actuation spray,suspension 2 spray intranasal BID Rx Instructions: administer into each nostril acetaminophen [Tylenol] 325 MG tablet 1 - 2 tab PO Q6H PRN PRN lorazepam 0.5 MG tablet 0.5 tab PO PRN PRN lorazepam 2 MG tablet 2 tab PO HS trazodone 150 MG tablet 150 mg PO HS multivitamin 1 EACH capsule 1 cap PO DAILY cholecalciferol (vitamin D3) 1,000 UNITS tablet 1,000 units PO DAILY [id number] 3.5-10,000-1 mg/mL-unit/mL-% solution 4 drp otic (ear) TID Patient Comments: INSTILL 4 DROPS INTO AFFECTED EAR(S) THREE TIMES DAILY Discharge Instructions Additional Instructions: Catheter plug to be placed in the irrigation port of his Kauffman catheter Catheter to either leg bag or large drainage bag (based on patient's preference) The patient will need 2 appointments in the office. The first will be within a week to have his Kauffman catheter removed. The second appointment should be in 2 to 3 weeks to review his pathology results and have a follow-up visit. Activity:: No lifting over 10 pounds Equipment/Supplies:: Kauffman to catheter drainag Diet:: As Tolerated Discharge Orders Discharge Orders: Discharge Order (Routine); Ordered 11/05/24 Ordered By: Dev Pro DS: Summary Time Spent with Patient providing and/or coordinating discharge services: Less than 30 minutes Status at Discharge Functional status at discharge: uses cane/walker Overall status at discharge: patient is back to baseline Mental Status: mental status grossly normal Speech and Movement: speech and movement normal Mood: congruent mood Affect: normal affect Quality:SDOH Health Related Social Needs: No Data to Display Exam Narrative Exam Narrative: On the day of discharge, he looks well. He is in good spirits. His vital signs are documented elsewhere His chest wall motion is normal. He is not short of breath at rest. His abdomen is soft with no guarding or rebound tenderness His catheter is draining light pink-tinged urine with no clots and no irrigation He is awake and alert Psych Mental Status: mental status grossly normal Speech and Movement: speech and movement normal Mood: congruent mood Affect: normal affect DS: Data Vitals/I&O Vitals and I&O: Vital Signs Temperature 37.1 C 11/05/24 08:04 Temperature Source Temporal Artery Scan 11/05/24 08:04 Pulse 65 11/05/24 08:04 Pulse Rhythm Regular 11/04/24 11:59 Pulse 65 11/04/24 09:45 Respiratory Rate 14 11/05/24 08:04 Respiratory Effort Normal, Non-Labored 11/04/24 11:59 Respiratory Depth Normal 11/04/24 11:59 Respiratory Pattern Normal 11/04/24 11:59 Blood Pressure 116/69 11/05/24 08:04 Blood Pressure Mean 73 11/04/24 09:45 Pulse Oximetry 93 11/05/24 08:04 Respiratory End-tidal CO2 36 11/04/24 09:45 Oxygen Delivery Method Room Air 11/05/24 08:04 Oxygen Flow Rate 0 11/05/24 08:04 Pain Level 0 11/05/24 08:04 Comment will notify RN on BP 11/04/24 15:36 Intake & Output 11/04/24 11/04/24 11/05/24 11:59 23:59 11:59 Intake Total 1003 / 1273 270 / 1273 485 / 485 Output Total 250 / 250 Balance 753 / 1023 270 / 1023 485 / 485 Weight 129.27 kg Intake: IV 1003 / 1273 270 / 1273 60 / 60 Oral 425 / 425 Output: Estimated Blood Loss 250 / 250 Other: Urine Color [place] Urine Appearance Clear Clear Hematuria Comment CBI, draining clear, pale, slight pink tinge. Patient denies pain catheter 3 way is stopped and flowing well. Emesis Description None Data Completed and Pending Labs on day of discharge: Labs from last 24 hours 11/05/24 05:21 WBC 9.86 RBC 4.15 L Hgb 13.1 L Hct 39.4 L MCV 95 MCH 31.6 MCHC 33.2 RDW 12.3 Plt Count 173 MPV 9.6 Immature Gran % 0.2 Neutrophils % 85.0 Lymphocytes % 7.5 Monocytes % 7.2 Eosinophils % 0.0 Basophils % 0.1 Nucleated RBC % 0.0 Absolute Neutrophils 8.38 H Absolute Lymphocytes 0.74 L Absolute Monocytes 0.71 Absolute Eosinophils 0.00 Absolute Basophils 0.01 Sodium 143 Potassium 4.5 Chloride 108 H Carbon Dioxide 29.4 Anion Gap 5.6 BUN 20 H Creatinine 1.3 Est GFR (CKD-EPI 2020) 55.53 Glucose 118 H Calcium 8.7 PFSH All Active Problems Right foot drop (Acute 04/24/22) Spinal stenosis, lumbar (Acute) Osteoarthritis of right knee (Acute) depo injection 03/10/22 Osteoarthritis of left knee (Acute) depo injection 03/10/22 Varicose veins of lower extremity (Acute) Medical History UTI (urinary tract infection) Hematuria BPH loc w urin obs/LUTS Urinary retention Hyperplasia of prostate Cervical radiculopathy GERD (gastroesophageal reflux disease) Benign essential hypertension Depressive disorder Psychophysiologic insomnia OCD (obsessive compulsive disorder) Hyperlipidemia Polyp of colon Surgical History (Updated 11/05/24 @ 09:24 by Dev Pro MD) S/P TURP Social History Smoking/Tobacco Use Status: Never Smoking risk assessment performed?: Yes Alcohol Intake: current Alcohol Intake frequency: holidays/special occasions only Alcohol type: hard liquor Drug use: Never Substance use type: does not use Housing: house Current gender identity: male Do you feel safe at home: Yes Do you feel safe in your relationship?: Yes Time Spent with Patient Time Spent with Patient: <45 minutes Time was spent: preparing to see the patient(eg.review tests), obtaining and/or reviewing separately otained hiistory, referring, communicating with other health care attendant, indepentently interpreting results, counseling the patient and care coordination
--- NOTE | 2024-11-05 12:07 | PDOC.CMPRO ---
Date of service: 11/05/24 Time of Service: 12:09 Care Management Progress Note Progress Note Text Progress Note Text: Benjamin was admitted on 11/04/24 for a TURP. The procedure went well and Benjamin was able to be discharged home this morning. He will follow up with Dr. Pro and his plan of care and transport with family. Social Determinants of Health Screening Will the Patient Participate in the Screening?: Unable to obtain
== END 2024-11-05 11:17 | disposition home or self-care (01) ==
LOC: DSU 11:47 → MS 13:06 → DSU 13:07 → MS 13:07
PROVIDERS: Admitting Provider Urology; PCP Specialist/Technologist Athletic Trainer; Visit Provider Urology
PROC: 0VT08ZZ Resection of Prostate, Via Natural or Artificial Opening Endoscopic (ICD-10-PCS; CPT 52601; principal; 2024-11-04 07:30)
DX: N40.1 Benign prostatic hyperplasia with lower urinary tract symptoms (principal); R33.9 Retention of urine, unspecified; K21.9 Gastro-esophageal reflux disease without esophagitis; F42.8 Other obsessive-compulsive disorder; R31.9 Hematuria, unspecified; M54.12 Radiculopathy, cervical region; I10 Essential (primary) hypertension; F32.A Depression, unspecified; F51.04 Psychophysiologic insomnia; E78.5 Hyperlipidemia, unspecified
CPT/HCPCS: 52601; 36415; 80048; 88305; 96365; 96366; 99221; 85025; 94760; G0378; J0690; J1100; J1580; J1885; J2405; J2704; J3010

== ENCOUNTER → 2024-11-14 13:15 | Outpatient (BNVA) | payer MEDICARE, SELFPAY | PROVIDERS: PCP Specialist/Technologist Athletic Trainer; Referring Provider Specialist/Technologist Athletic Trainer; Visit Provider Urology | DX: R33.8 Other retention of urine (principal) ==

== ENCOUNTER → 2024-12-02 14:03 | Outpatient (BNVA) | payer MEDICARE, SELFPAY | PROVIDERS: PCP Specialist/Technologist Athletic Trainer; Referring Provider Specialist/Technologist Athletic Trainer; Visit Provider Urology | DX: R33.8 Other retention of urine (principal) | CPT/HCPCS: 51798; 99213 ==

== ENCOUNTER → 2024-12-23 13:23 | Outpatient (BNVA) | payer MEDICARE, SELFPAY | PROVIDERS: PCP Specialist/Technologist Athletic Trainer; Referring Provider Specialist/Technologist Athletic Trainer; Visit Provider Urology | DX: Z48.816 Encounter for surgical aftercare following surgery on the genitourinary system (principal); R33.8 Other retention of urine ==